=== PATIENT | female | born 1985 | race Caucasian/White ===

== ENCOUNTER 2016-12-10 13:07 | Emergency (ER) | payer SELFPAY ==
[~2016-12-10] VITALS: Ht 172.7 cm; Wt 60.0 kg
[~2016-12-10 13:07] MED LIST: IOHEXOL-300 100 ML BOTTLE ONE; SODIUM CHLORIDE 0.9% 10ML VIAL ONE
[2016-12-10] MEDS ORDERED: SODIUM CHLORIDE 0.9% 1,000 ML IV ONE (14:00)
[2016-12-10] MEDS ORDERED: MORPHINE SULFATE 4 MG/ML CPJ (NOT FOR IM USE) IV STA (14:00)
[2016-12-10 14:35] LABS: BASOPHILS % 0.5 % (0.0-2.0); EOSINOPHILS % 0.6 % (0.0-5.0); HEMATOCRIT. 33.7 % (36.0-48.0); HEMOGLOBIN. 11.3 g/dL (12.0-16.0); LYMPHOCYTES % 13.9 % (20.0-50.0); MEAN CORPUSCULAR HEMOGLOBIN 30.7 pg (28.0-32.0); MEAN CORPUSCULAR VOLUME 91.3 fL (81.0-99.0); MEAN PLATELET VOLUME 8.3 fl (7.4-10.4); PLATELET 358 x1000/uL (130-400); RED BLOOD CELL COUNT 3.69 mill/uL (4.2-5.4); RED CELL DISTRIBUTION WIDTH 12.8 % (11.6-14.6)
[2016-12-10 14:41] LABS: PROTHROMBIN TIME 10.3 sec
[2016-12-10 14:51] LABS: CARBON DIOXIDE 29 mEq/L (21-32); CHLORIDE 104 mEq/L (98-107)
[2016-12-10 14:53] LABS: B-HCG QUANTITATIVE 85 mIU/mL (<3)
[2016-12-10 15:48] LABS: CLARITY URINE CLOUDY (CLEAR); COLOR URINE ORANGE (YELLOW); GLUCOSE URINE NEGATIVE (NEGATIVE); KETONES URINE NEGATIVE (NEGATIVE); LEUKOCYTE ESTERASE URINE TRACE (NEGATIVE); NITRITE URINE NEGATIVE (NEGATIVE); OCCULT BLOOD URINE 3+ (NEGATIVE); PROTEIN URINE TRACE (NEGATIVE); SPECIFIC GRAVITY URINE 1.011 (1.005-1.030)
[2016-12-10] MEDS ORDERED: MORPHINE SULFATE 4 MG/ML CPJ (NOT FOR IM USE) IV ONE (18:45)
[2016-12-10] MEDS ORDERED: METRONIDAZOLE 500 MG PREMIX 100 ML IV ONE (21:45)
[2016-12-10] MEDS ORDERED: CEFTRIAXONE 1 G PREMIX 50 ML IV ONE (21:45)
[2016-12-10 22:40] VITALS: BP 125/75
== END 2016-12-10 23:30 | disposition home or self-care (01) ==
LOC: ER 13:23
DX: O00.90 Unspecified ectopic pregnancy without intrauterine pregnancy (principal); N39.0 Urinary tract infection, site not specified
CPT/HCPCS: 36415; 74177; 76830; 76856; 80053; 81001; 81025; 83690; 84702; 85025; 85610; 96361; 96365; 96367; 96375; 96376; 99285; A4216; J0696; J2270; J3490; J7030; J7040; Q9967; Z7610

== ENCOUNTER 2019-02-15 10:20 | Emergency (ER) | payer SELFPAY ==
[~2019-02-15] VITALS: Ht 157.5 cm; Wt 86.0 kg
[2019-02-15] MEDS ORDERED: IBUPROFEN 800MG TABLET PO ONE (10:45)
[2019-02-15 11:00] VITALS: BP 142/92
== END 2019-02-15 12:06 | disposition home or self-care (01) ==
LOC: ER 10:20
DX: S29.012A Strain of muscle and tendon of back wall of thorax, initial encounter (principal); M25.561 Pain in right knee; V43.52XA Car driver injured in collision with other type car in traffic accident, initial encounter; Y93.9 Activity, unspecified; Y92.410 Unspecified street and highway as the place of occurrence of the external cause; Z98.890 Other specified postprocedural states
CPT/HCPCS: 72070; 81025; 99283

== ENCOUNTER 2019-09-25 19:33 | Inpatient (IN) | payer SELFPAY ==
[~2019-09-25] VITALS: Ht 162.6 cm; Wt 79.4 kg
[2019-09-25] MEDS ORDERED: ACETAMINOPHEN 325MG TABLET PO PRN (20:30)
[2019-09-25 20:43] LABS: CLARITY URINE CLEAR (CLEAR); COLOR URINE YELLOW (YELLOW); KETONES URINE NEGATIVE (NEGATIVE); LEUKOCYTE ESTERASE URINE 1+ (NEGATIVE); NITRITE URINE NEGATIVE (NEGATIVE); OCCULT BLOOD URINE NEGATIVE (NEGATIVE); PROTEIN URINE NEGATIVE (NEGATIVE); SPECIFIC GRAVITY URINE 1.027 (1.005-1.030)
[2019-09-25] MEDS ORDERED: CEFTRIAXONE 1 G PREMIX 50 ML IV ONE (21:45)
[2019-09-25 22:32] LABS: BASOPHILS % 0.6 % (0.0-2.0); EOSINOPHILS % 0.3 % (0.0-5.0); HEMATOCRIT. 39.5 % (36.0-48.0); HEMOGLOBIN. 13.6 g/dL (12.0-16.0); LYMPHOCYTES % 33.7 % (20.0-50.0); MEAN CORPUSCULAR HEMOGLOBIN 31.7 pg (28.0-32.0); MEAN CORPUSCULAR VOLUME 92.2 fL (81.0-99.0); MEAN PLATELET VOLUME 9.4 fl (7.4-10.4); MONOCYTES % 5.1 % (2.0-8.0); NEUTROPHILS % 60.3 % (40.0-76.0); PLATELET 223 x1000/uL (130-400); RED BLOOD CELL COUNT 4.28 mill/uL (4.2-5.4); RED CELL DISTRIBUTION WIDTH 13.2 % (11.6-14.6)
[2019-09-25 22:38] LABS: CHLORIDE 106 mEq/L (98-107)
[2019-09-25 23:01] LABS: B-HCG QUANTITATIVE 24367 mIU/mL (<3)
[2019-09-26] VITALS (7 sets, daily range): BP systolic 98–118; BP diastolic 51–68
[2019-09-26 09:09] LABS: HEMATOCRIT 38.2 % (36.0-48.0); HEMOGLOBIN 13.1 g/dL (12.0-16.0); MEAN CORPUSCULAR HEMOGLOBIN 31.5 pg (28.0-32.0); MEAN CORPUSCULAR VOLUME 92.1 fL (81.0-99.0); PLATELET 215 x1000/uL (130-400); RED BLOOD CELL COUNT 4.15 mill/uL (4.2-5.4); RED CELL DISTRIBUTION WIDTH 13.3 % (11.6-14.6)
[2019-09-26] MEDS: LACTATED RINGERS 1,000 ML IV SCH (20:37)
[2019-09-26] MEDS ORDERED: GLYCOPYRROLATE 0.2 MG/ML 2ML VIAL ONE (22:24)
[2019-09-26] MEDS ORDERED: ROCURONIUM BROMIDE 10MG/ML VIAL 5ML IV ONE (22:24)
[2019-09-26] MEDS ORDERED: PROPOFOL 200MG/20ML VIAL IV ONE (22:24)
[2019-09-26] MEDS ORDERED: CEFAZOLIN SODIUM 1000MG/VIAL ONE (22:24)
[2019-09-26] MEDS ORDERED: FENTANYL CITRATE/PF 50MCG/ML 2ML VIAL ONE ×2 (22:24→22:39)
[2019-09-26] MEDS ORDERED: ONDANSETRON HCL 4MG/2ML INJ ONE (22:24)
[2019-09-26] MEDS ORDERED: SUCCINYLCHOLINE CHLORIDE 200MG/10ML IV ONE (22:24)
[2019-09-26] MEDS ORDERED: METOCLOPRAMIDE HCL 10MG/2ML VIAL ONE (22:24)
[2019-09-26] MEDS ORDERED: MIDAZOLAM HCL 2 MG/2 ML VIAL ONE (22:24)
[2019-09-26] MEDS ORDERED: NEOSTIGMINE METHYLSULFATE 1MG/ML 10 ML VIAL ONE (22:24)
[2019-09-26] MEDS ORDERED: LIDOCAINE HCL/PF 1% 10 MG/ML 5ML VIAL ONE (22:24)
[2019-09-26] MEDS ORDERED: SODIUM CHLORIDE 0.9% 10ML VIAL ONE (22:24)
[2019-09-26] MEDS ORDERED: HYDROMORPHONE HCL/PF 2MG/ML CPJ IV PRN (22:45)
[2019-09-26] MEDS ORDERED: ONDANSETRON HCL 4MG/2ML INJ IV PRN ×2 (22:45)
[2019-09-26] MEDS ORDERED: MEPERIDINE HCL/PF 25MG/ML CPJ IV PRN ×2 (22:45)
[2019-09-26] MEDS ORDERED: MORPHINE SULFATE 2 MG/ML CPJ (NOT FOR IM USE) IV PRN ×2 (22:45)
[2019-09-26] MEDS ORDERED: SODIUM CHLORIDE 0.9% 1,000 ML IV ONE (23:00)
[2019-09-27] MEDS: LACTATED RINGERS 1,000 ML IV SCH ×2 (03:30→11:43)
[2019-09-27 04:00] VITALS: BP 96/49
[2019-09-27] MEDS: DEXT 5%/0.45% NACL KCL 20MEQ/L 1,000 ML IV SCH ×2 (05:03→14:31)
[2019-09-27] MEDS: CEFAZOLIN 1000MG PREMIX 50 ML IV SCH ×3 (05:31→22:00)
[2019-09-27 06:54] LABS: BASOPHILS % 0.2 % (0.0-2.0); HEMATOCRIT. 33.4 % (36.0-48.0); HEMOGLOBIN. 11.5 g/dL (12.0-16.0); LYMPHOCYTES % 18.1 % (20.0-50.0); MEAN CORPUSCULAR HEMOGLOBIN 31.7 pg (28.0-32.0); MEAN PLATELET VOLUME 9.6 fl (7.4-10.4); MONOCYTES % 3.8 % (2.0-8.0); NEUTROPHILS % 77.9 % (40.0-76.0); PLATELET 197 x1000/uL (130-400); RED BLOOD CELL COUNT 3.63 mill/uL (4.2-5.4)
[2019-09-27 06:56] LABS: CHLORIDE 109 mEq/L (98-107)
[2019-09-27 08:00] VITALS: BP 102/55
[2019-09-27] MEDS: OXYCODONE HCL/ACETAMINOPHEN 5/325MG TABLET PO PRN ×2 (09:30→18:11)
[2019-09-27 12:00] VITALS: BP 96/55
[2019-09-27 16:00] VITALS: BP 100/51
[2019-09-27 20:00] VITALS: BP 93/50
[2019-09-28] VITALS: BP 109/53
[2019-09-28] MEDS: DEXT 5%/0.45% NACL KCL 20MEQ/L 1,000 ML IV SCH (00:50)
[2019-09-28 04:00] VITALS: BP 98/54
[2019-09-28 06:45] VITALS: BP 98/54
[2019-09-28 08:00] VITALS: BP 104/67
== END 2019-09-28 10:15 | disposition home or self-care (01) | DRG 545 ==
LOC: ER 19:33 → 6EST 21:38 → ENRESERV 23:58 → SUPCPDRO 23:59
PROVIDERS: ADMIT Obstetrics & Gynecology; ATTEND Obstetrics & Gynecology
PROC: 0UT50ZZ Resection of Right Fallopian Tube, Open Approach (ICD-10-PCS; principal; 2019-09-28)
PROC: 10T20ZZ Resection of Products of Conception, Ectopic, Open Approach (ICD-10-PCS; 2019-09-28)
DX: O00.101 Right tubal pregnancy without intrauterine pregnancy (principal); Z90.721 Acquired absence of ovaries, unilateral
CPT/HCPCS: 36415; 76801; 80048; 80053; 81003; 82962; 84702; 85025; 85027; 86850; 86900; 88305; 99285; J0330; J0690; J0696; J2175; J2250; J2270; J2405; J2704; J2710; J2765; J3010; J3490; J7120